=== PATIENT | male | born 1995 | race Two or more races ===

== ENCOUNTER 2018-11-26 00:54 | Emergency (ER) | payer MEDICAID ==
[~2018-11-26] VITALS: Ht 180.3 cm; Wt 95.6 kg
[2018-11-26 00:58] VITALS: BP 160/89
[2018-11-26] MEDS ORDERED: IBUPROFEN 800 MG TABLET ONE (01:12)
--- NOTE | 2018-11-26 01:17 | NUR ---
PT MEDICATED PER EMAR FOR PAIN. PT TOLERATED WELL.
[2018-11-26] MEDS ORDERED: IBUPROFEN 800 MG TABLET PO ONE (01:30)
--- NOTE | 2018-11-26 02:13 | NUR ---
PT GIVEN DC INSTRUCTIONS AND SCRIPT. PT EDUCATED REAGRDING DC MEDICATION. PT AMB WITH CRUTCHES TO DC. NO ACUTE DISTRESS AT DC.
== END 2018-11-26 02:15 | disposition home or self-care (01) ==
LOC: ED 02:09
DX: S93.492A Sprain of other ligament of left ankle, initial encounter (principal); I10 Essential (primary) hypertension; J45.909 Unspecified asthma, uncomplicated; F17.200 Nicotine dependence, unspecified, uncomplicated; Z86.19 Personal history of other infectious and parasitic diseases; X50.1XXA Overexertion from prolonged static or awkward postures, initial encounter; Y93.89 Activity, other specified; Y92.830 Public park as the place of occurrence of the external cause; Y99.8 Other external cause status
CPT/HCPCS: 99283

== ENCOUNTER 2019-06-11 00:21 | Emergency (ER) | payer MEDICAID ==
[~2019-06-11] VITALS: Ht 180.3 cm; Wt 103.5 kg
[2019-06-11 00:33] VITALS: BP 151/78
[2019-06-11] MEDS ORDERED: ALBU18HF INH (00:44)
--- NOTE | 2019-06-11 00:46 | NUR ---
THIS IS A 24 YO MALE COMING IN FOR " I WAS SEEN AT [facility] THIS MORNING AND THEY SAID I NEED XRAY DONE ON MY CHEST BECAUSE THEY THOUGHT I HAVE BRONCHITIS", +PRODUCTIVE COUGH, HEADACHE, NAUSEA, TIRED AND BODY ACHES X 3 DAYS WAS PRESCRIBED AMOXICILLIN AND PREDNISONE TODAY, H/X ASTHMA. EXPIRATORY WHEEZES HEARD THROUGHOUT, NO RETRACTIONS, VSS, NAD, SKIN IS APPROPRIATE FOR ETHNICITY, WARM AND DRY. CALL LIGHT IN REACH, DENIES NEEDS AT THIS TIME. AWAITING BREATHING TX. PT TO XRAY
[2019-06-11] MEDS ORDERED: ALBUTEROL/IPRATROPIUM 2.5MG/0.5MG, 3 ML NPPB ONE (01:00)
--- NOTE | 2019-06-11 01:15 | NUR ---
RT TO ROOM TO GIVE BREATHING TX
[2019-06-11] MEDS ORDERED: ALBUTEROL/IPRATROPIUM 2.5MG/0.5MG, 3 ML ONE (01:17)
--- NOTE | 2019-06-11 01:18 | NUR ---
Patient/Caregiver given discharge instructions and they have confirmed that they understand the instructions. Patient ambulatory with steady gait.
== END 2019-06-11 01:26 | disposition home or self-care (01) ==
LOC: ED 01:06
DX: J45.901 Unspecified asthma with (acute) exacerbation (principal); J20.9 Acute bronchitis, unspecified; M79.89 Other specified soft tissue disorders; I10 Essential (primary) hypertension; F17.200 Nicotine dependence, unspecified, uncomplicated; R51 Headache
CPT/HCPCS: 71046; 94640; 99283; J7620

== ENCOUNTER 2019-09-03 01:45 | Emergency (ER) | payer MEDICAID ==
[~2019-09-03] VITALS: Ht 180.3 cm; Wt 99.8 kg
[~2019-09-03 01:45] MED LIST: ALBU18HF INH
--- NOTE | 2019-09-03 02:05 | NUR ---
Patient presents to ER c/o cough and sore throat x1 week. Patient has a JORGE; denies fever. Patient has a hx of asthma and uses an inhaler which he hasn't had for a few days. He c/o CP the other night but not currently. He had bronchitis approx 1 month ago. Patient is in NAD. Respirations even and unlabored.
[2019-09-03 03:04] VITALS: BP 129/71
--- NOTE | 2019-09-03 03:37 | NUR ---
Discharge instructions given. All questions and concerns addressed. Spacer given. Patient ambulatory with a steady gait. Belongings with patient.
== END 2019-09-03 03:39 | disposition home or self-care (01) ==
LOC: ED 02:26
DX: J45.901 Unspecified asthma with (acute) exacerbation (principal); I10 Essential (primary) hypertension; F17.210 Nicotine dependence, cigarettes, uncomplicated; Z72.9 Problem related to lifestyle, unspecified
CPT/HCPCS: 71045; 99283; 99406

== ENCOUNTER 2020-01-26 02:24 | Emergency (ER) | payer MEDICAID ==
[~2020-01-26] VITALS: Ht 180.3 cm; Wt 98.8 kg
[2020-01-26 02:38] VITALS: BP 137/77
== END 2020-01-26 03:32 | disposition home or self-care (01) ==
LOC: ED 03:00
DX: Z00.00 Encounter for general adult medical examination without abnormal findings (principal); Z48.02 Encounter for removal of sutures; I10 Essential (primary) hypertension; J45.909 Unspecified asthma, uncomplicated; F17.210 Nicotine dependence, cigarettes, uncomplicated
CPT/HCPCS: 99281; 99406

== ENCOUNTER 2020-12-13 01:25 | Emergency (ER) | payer MEDICAID ==
[~2020-12-13] VITALS: Ht 177.8 cm; Wt 80.9 kg
--- NOTE | 2020-12-13 01:40 | NUR ---
pt came into the ed this am due to right testicular pain, pt states it started when he was just sitting at home doing no activity, reports this also happened last night around the same time. due to pain pt states he drank and smoked ampethamines and took percocet without symptom relief. pt denies difficulty with urination at this time. Patient is resting comfortably in bed. Bed in lowest, rails engaged, call light on lap. placed on spo2/bp monitoring at this time. provided warm blankets for comfort. ANTHONY.
--- NOTE | 2020-12-13 02:11 | NUR ---
PT IN US AT THIS TIME. UA COLLECTED AND SENT TO LAB, NO CHANGE IN PT CONDITION, WCTM.
[2020-12-13 02:19] LABS: MICROSCOPIC AUTO
[2020-12-13 02:59] VITALS: BP 144/84
--- NOTE | 2020-12-13 03:01 | NUR ---
PT OPTING TO LEAVE [facility] EXPLAINED RISKS AND THAT US READ WOULD LIKELY BE BACK IN LESS THAN 30 MINS. PT STATES HE IS UNABLE TO WAIT D/T A FAMILY EMERGENCY AND THAT THE PAIN HAS SUBSIDED AT THIS TIME BUT THAT HE WILL COME BACK IF IT COMES BACK. ERP AWARE. SUGEY PAPERS SIGNED
== END 2020-12-13 03:03 | disposition home or self-care (01) ==
LOC: ED 02:30
DX: N50.811 Right testicular pain (principal)
CPT/HCPCS: 76870; 81001; 87491; 87591; 99284